=== PATIENT | male | born 1980 | race Two or more races ===

== ENCOUNTER 2019-01-20 09:59 | Outpatient (CLI) | payer OTHER ==
[~2019-01-20 09:59] MED LIST: METOPROLOL SUCC50 MG
== END 2019-01-20 10:10 | disposition home or self-care (01) ==
LOC: SONOGRAMA 09:59
DX: E05.90 Thyrotoxicosis, unspecified without thyrotoxic crisis or storm (principal)

== ENCOUNTER 2021-07-08 11:47 | Outpatient (CLI) | payer OTHER | END 2021-07-08 11:57 | disposition home or self-care (01) | LOC: SONOGRAMA 11:47 | PROVIDERS: ATTEND Internal Medicine | DX: E04.1 Nontoxic single thyroid nodule (principal) ==

== ENCOUNTER 2023-05-19 11:19 | Outpatient (CLI) | payer OTHER | END 2023-05-19 11:36 | disposition home or self-care (01) | LOC: RAD 11:19 | DX: R05.8 Other specified cough (principal); E03.9 Hypothyroidism, unspecified ==

== ENCOUNTER 2024-07-16 10:04 | Emergency (ER) | payer OTHER ==
[~2024-07-16] VITALS: Ht 180.3 cm; Wt 165.6 kg
[2024-07-16] MEDS ORDERED: TOPROL XL25 M1 PO (10:41)
[2024-07-16] MEDS ORDERED: COZAAR25 MG PO (10:41)
[2024-07-16] MEDS ORDERED: LEVO-T200 MCG PO (10:41)
[2024-07-16] MEDS ORDERED: KETOROLAC TROMETHAMINE 60 MG VIAL IM ONE ×3 (11:45→12:02)
[2024-07-16] MEDS ORDERED: ONDANSETRON HCL 2 MG/ML VIAL IV ONE (11:45)
[2024-07-16] MEDS ORDERED: FAMOtidine 10 MG/ML (4ML VIAL) IV ONE (11:45)
[2024-07-16] MEDS ORDERED: 0.9 % SODIUM CHLORIDE 1,000 ML IV ONE (11:45)
[2024-07-16] MEDS ORDERED: ONDANSETRON HCL 2 MG/ML VIAL ONE ×2 (11:46→12:02)
[2024-07-16] MEDS ORDERED: FAMOTIDINE/PF 20 MG/2 ML VIAL ONE ×2 (11:46→12:03)
[2024-07-16 14:56] LABS: HEMATOCRIT 45.6 % (39.0-48.0); HEMOGLOBIN 15.1 g/dL (13-16.00); MEAN CELL VOLUME 87.7 fL (80.0-100.00); MEAN CORPUSCULAR HGB CONC 33.1 g/dl (32.0-36.0); PLATELET COUNT 211 K/uL (150-450); RED CELL DISTRIBUTION WIDTH 15.5 % (11.5-14.5)
[2024-07-16 15:31] LABS: ALBUMIN 3.6 gm/dL (3.4-5.0); BILIRUBIN TOTAL 0.29 mg/dL (0.3-1.2); CALCIUM 9.4 mg/dL (8.5-10.1); CREATININE SERUM 1.21 mg/dL (0.70-1.30); GFR 64.85; GLOBULINA 4.3 G/DL (2.4-3.5); POTASSIUM 4.05 mEq/L (3.5-5.1); TOTAL PROTEIN 7.9 gm/dL (6.4-8.2)
[2024-07-16] MEDS ORDERED: PEPCID AC20 MG PO (17:48)
[2024-07-16] MEDS ORDERED: LEVSIN/SL0.125 MG SL (17:48)
== END 2024-07-16 18:00 | disposition home or self-care (01) ==
LOC: ER 10:05
PROVIDERS: General Practice
DX: R10.11 Right upper quadrant pain (principal); R10.9 Unspecified abdominal pain; I10 Essential (primary) hypertension; E03.8 Other specified hypothyroidism
CPT/HCPCS: 36415; 74177; Q9965